=== PATIENT | male | born 1955 | race Caucasian/White ===

== ENCOUNTER → 2016-03-20 | Outpatient (CLI) | payer MEDICARE, OTHER | LOC: MW.CHNEURO 08:00 | CPT/HCPCS: 95886; 95910 ==

== ENCOUNTER → 2016-06-15 | Outpatient (CLI) | payer MEDICARE, OTHER | END | disposition home or self-care (01) | LOC: MW.CHRC 14:10 | PROVIDERS: ATTEND Family Medicine | DX: E11.9 Type 2 diabetes mellitus without complications (principal); M54.2 Cervicalgia; G56.00 Carpal tunnel syndrome, unspecified upper limb | CPT/HCPCS: 36415; 80061; 81001; 82044; 83036; G0463 ==